=== PATIENT | female | born 1960 | race Caucasian/White ===

== ENCOUNTER 2023-05-07 12:27 | Day surgery (SDC) | payer MEDICARE, SELFPAY ==
[2023-05-07] VITALS (14 sets, daily range): BP systolic 84–122; BP diastolic 51–72; BMI 25.1
--- NOTE | 2023-05-07 16:11 | ITS.CL.CATH ---
[facility] - Catheterization
Cardiac Catheterization
Procedure Report:
CARDIAC CATHETERIZATION REPORT
Date of Procedure: 05/07/2023
Referring: Les Grant MD
Indication: Preop cath for mitral valve fibroelastoma
HEMODYNAMIC DATA
AO: 106/62
LV: Not done
LEFT VENTRICULOGRAPHY: Not done
CORONARY ANGIOGRAPHY
Dominance: Right
Left Main: Normal
LAD: Normal
Circumflex: Normal
RCA: Normal dominant vessel
Closure Device: None-the procedure was performed via the right radial artery. The Dejon's test was normal prior to the procedure.
Radiation (mGy): 45
DAP (cm2.Gy): 3.8
Fluoroscopy time: 1.6 minutes
CONCLUSIONS
1: Normal coronary arteries
Copy to: Les Grant MD, Juarez Beaver MD, PhD, Gina Nur MD
Jitednra Johnson MD, FACC, [facility]
[2023-05-07] MEDS: NSS 1000 IV ×2 (16:17→16:18)
== END 2023-05-07 18:56 | disposition home or self-care (01) ==
LOC: CATH 12:27
PROVIDERS: ATTENDING PHYSICIAN Internal Medicine Cardiovascular Disease; FAMILY PHYSICIAN Family Medicine; OTHER PHYSICIAN Internal Medicine
DX: Z01.810 Encounter for preprocedural cardiovascular examination (principal); I42.4 Endocardial fibroelastosis; E78.00 Pure hypercholesterolemia, unspecified; Z79.01 Long term (current) use of anticoagulants
CPT/HCPCS: 93454; C1894; Q9967

== ENCOUNTER → 2023-06-16 08:39 | Outpatient (REF) | payer MEDICARE, SELFPAY | LOC: WDC 08:39 | PROVIDERS: ATTENDING PHYSICIAN Family Medicine | DX: R92.2 Inconclusive mammogram (principal); Z85.3 Personal history of malignant neoplasm of breast | CPT/HCPCS: 76641 ==

== ENCOUNTER 2023-06-28 05:22 | Inpatient (IN) | payer MEDICARE, SELFPAY ==
[2023-06-18 09:20] VITALS: BMI 24.7
[2023-06-18 10:28] LABS: % Basophils 0.4 % (0-2); % Eosinophils 1.4 % (0-6); % Immature Granulocytes 0.4 % (0-0.5); % Lymphocytes 34.2 % (20.5-51.1); % Monocytes 10.6 % (1.7-9.3); Absolute Eosinophils 0.1 10^3/uL (0-0.7); Absolute Lymphocytes 1.7 10^3/uL (1.2-3.4); Absolute Monocytes 0.5 10^3/uL (0.1-0.6); Absolute Neutrophils 2.6 10^3/uL (1.4-6.5); Hemoglobin 12.5 g/dL (12.0-16.0); Mean Corp Hgb Conc. 33.8 g/dL (33.0-37.0); Mean Corpuscular Hgb 28.9 pg (27.0-31.0); Mean Corpuscular Volume 85.6 fL (81.0-99.0); Mean Platelet Volume 9.7 fL (7.4-10.4); Nucleated Red Blood Cells % 0 %; Platelet Count 229 10^3/uL (130-400); Red Blood Cell Count 4.32 10^6/uL (4.20-5.40); Red Cell Dist. Width 13.8 % (11.5-14.5); White Blood Cell Count 4.9 10^3/uL (4.8-10.8)
[2023-06-18 10:29] LABS: Urine Albumin Negative (Neg - Trace); Urine Bilirubin Negative (Negative); Urine Character Clear (Clear); Urine Color Yellow; Urine Glucose Negative (Negative); Urine Ketone Negative (Negative); Urine Leukocyte Negative (Negative); Urine Nitrite Negative (Negative); Urine Occult Blood Negative (Negative); Urine Urobilinogen Negative (Neg - 1+)
--- NOTE | 2023-06-18 10:40 | CM ---
CM met w/ patient during PATs for planned procedure, 06/27.
Patient informs that she resides alone in a private, 2 story home w/ 1 DEBI. She is functionally indep. w/ ADLs, mobility without the use of any assisted device.
Pt. still works full-time.
Reviewed pre and post op routines.
Soap, shower instructions and Cardiac Surgery booklet provided.
Discussed post op restrictions to include lifting and driving restrictions.
Reviewed post op appointments, Cardiac Rehab and visit from CT Transitional Care RN.
Plan for CT Surgery 06/27.
Anticipated DC plan is for home w/ CT Transitional Care RN.
CM to follow.
[2023-06-18 10:57] LABS: PT 14.1 Sec (11.4-14.6)
[2023-06-18 10:58] LABS: APTT 36.7 Sec (23.4-35.0)
[2023-06-18 11:33] LABS: ALT (SGPT) 35 U/L (0-35); AST (SGOT) 32 U/L (14-36); Albumin 4.5 g/dl (3.5-5.0); Alkaline Phosphatase 88 U/L (38-126); Blood Urea Nitrogen 19 mg/dl (7-17); Calcium 9.5 mg/dl (8.4-10.2); Carbon Dioxide 25 mmol/L (22-30); Chloride 107 mmol/L (98-107); Estimated Creatinine Clearance 55 ml/min; Glucose 88 mg/dl (70-99); Potassium 4.2 mmol/L (3.5-5.1); Sodium 137 mmol/L (135-145); Total Bilirubin 0.5 mg/dl (0.2-1.3); Total Protein 7.1 g/dl (6.3-8.2); eGFR > 60.00
[2023-06-18 12:14] LABS: Glycohemoglobin (HgbA1c) 5.9 % (4.0-5.6)
[2023-06-28] VITALS (15 sets, daily range): BP systolic 92–116; BP diastolic 49–78; BMI 24.6
[2023-06-28] MEDS: PROTONIX 40 MG PO (06:11)
[2023-06-28] MEDS: BACTROBAN 2% OINTMENT 1 APPLIC NASAL ×2 (06:11→19:20)
[2023-06-28] MEDS: MAGNESIUM OXIDE 500 MG PO (06:11)
[2023-06-28] MEDS: LOPRESSOR 25 MG PO (06:12)
--- NOTE | 2023-06-28 06:15 | PTCARENOTE ---
Patient arrived to room 2256 IVU with java security engineer and family. Patient A+A+Ox3. No neurological deficits noted. No c/o pain or discomfort. Steady gait. Patient confirmed taking 4% Chlorhexidine shower last night and this morning. Patient
confirmed NPO status after midnight. Patient clipped and prepped per protocol. CHG wipes. Admission questions and medication reconciliation completed. Pre-OP medications administered. I.S. 2000 ml. Heart pillow explained. Dr. Grant arrived and
talked with patient. call center support consultant for [facility].
--- NOTE | 2023-06-28 06:42 | W.CVOR.SURPR ---
[facility] Surgeon Immed Pre Op
-
I have examined this patient prior to performance of the scheduled procedure.
The patient's condition is unchanged from the time of the dictated/written History and
Physical and the patient is able to undergo the scheduled procedure.
Mitral valve intra-cardiac tumor resection, intimately involved with the subvalv apparatus, will make every attempt to spare her valve
She understands there is a higher than avg chance of requiring a replacement - if so, she has opted for a biological prosthesis
[2023-06-28 07:19] LABS: Urine Albumin Negative (Neg - Trace); Urine Bilirubin Negative (Negative); Urine Character Clear (Clear); Urine Color Yellow; Urine Glucose Negative (Negative); Urine Ketone Negative (Negative); Urine Leukocyte Negative (Negative); Urine Nitrite Negative (Negative); Urine Occult Blood Negative (Negative); Urine Urobilinogen Negative (Neg - 1+)
[2023-06-28] MEDS: ANCEF 10 IV ×2 (07:40→11:09)
[2023-06-28 07:44] LABS: ACT+ - POC 85 Seconds (82-134)
[2023-06-28 07:51] LABS: B.E. - POC -1.6 mmol/L; Glucose - POC 112 mg/dl (65-99); HCO3 - POC 23 mmol/L (21-29); Hematocrit - POC 32 % PCV (37-47); Hemodilution- POC No; Hemoglobin Calculated - POC 10.7; Ionized Calcium - POC 1.24 mmol/L (1.12-1.27); O2 Saturation %Calculated-POC 99.9 5 (92-96); PCO2 - POC 38 mmHg (35-45); PO2 - POC 309 mmHg (80-100); Potassium - POC 3.9 mmol/L (3.6-5.0); Sodium - POC 140 mmol/L (135-145); pH - POC 7.39 (7.35-7.45)
[2023-06-28 08:19] LABS: ACT+ - POC 478 Seconds (82-134)
--- NOTE | 2023-06-28 08:19 | CM ---
Reviewed chart. Mrs. King is in the operating room today. Prior to admission she resides alone in a two story home with one step to enter. Prior to admission she was independent with ambulation and adls. She has a prescription plan. Medical
work-up in progress. The discharge plan is to undetermined at this time.
[2023-06-28 08:47] LABS: Glucose - POC 130 mg/dl (65-99); HCO3 - POC 27 mmol/L (21-29); Hematocrit - POC 29 % PCV (37-47); Hemodilution- POC Yes; Hemoglobin Calculated - POC 9.8; Ionized Calcium - POC 0.98 mmol/L (1.12-1.27); O2 Saturation %Calculated-POC 99.9 5 (92-96); PCO2 - POC 44 mmHg (35-45); PO2 - POC 350 mmHg (80-100); Potassium - POC 4.8 mmol/L (3.6-5.0); Sodium - POC 137 mmol/L (135-145)
[2023-06-28 08:52] LABS: ACT+ - POC 552 Seconds (82-134)
--- NOTE | 2023-06-28 09:05 | W.PN.CD ---
Addendum entered and electronically signed by Ravinder Yanes MD 06/28/23 14:31:
I saw and examined the patient.
The IRB COMPLIANCE COORDINATOR's note was reviewed and I agree with the note.
s/p Radical mitral valve repair with tumor resection (detachment of the posterior leaflet, tumor resection, reattachment of the posterior leaflet, 26 mm band annuloplasty, free edge remodeling of the posterior leaflet, single pair of CV 4 [place]-Arnoldo
to A2)
- stable and in sinus rhythm
wean from vent as per protocol
- continue post op care as directed by CT surgery
Original Note:
Today's Communication / Plan
-
Follow telemetry
Impression / Plan
-
BACKGROUND: 63F with hyperlipidemia (in range of familial hypercholesterolemia), prior left breast cancer (lumpectomy and radiation 2008), and mitral valve mass found when TTE was ordered for dizziness. Dizziness resolved with Hallpike.
Site Planner: Dr. Beaver
Radical mitral valve repair with tumor resection via right common femoral & right mini thoracotomy on 06/28/[address] Grant
-Detachment of the posterior leaflet, tumor resection, reattachment of the posterior leaflet, 26 mm band annuloplasty
-She was on apixaban until 06/25/23 to reduce thromboembolic risk prior to surgical resection
-CLAUDIA unchanged (65%) without RWMA post op
-EKG with prolonged QT, follow
-Follow telemetry
HLD, resume rosuvastatin when able, likely escalate therapy outpatient to rosuvastatin 10mg daily to get LDL < 100
Prior breast cancer, left, S/P lumpectomy and radiation (2008)
SUBJECTIVE:
Intubated and sedated.
Physical Exam
Vital Signs/Labs
Vital Signs
Temp Pulse Resp BP Pulse Ox
97.6 F 71 16 115/78 97
06/28/23 05:43 06/28/23 06:12 06/28/23 05:43 06/28/23 06:12 06/28/23 05:43
06/27/23 06/28/23 06/29/23
06:59 06:59 06:59
Actual Weight 66.1 kg
06/18/23 09:01
06/18/23 09:01
PT 14.1 Sec (11.4-14.6) 06/18/23 09:01
INR 1.10 06/18/23 09:01
APTT 36.7 Sec (23.4-35.0) H 06/18/23 09:01
Physical Exam
Constitutional: No acute distress and Comfortable
EENT: Anicteric and Moist mucous membranes
Cardiovascular: Rhythm & rate is regular and Murmur/rub/gallop absent
Respiratory: Lungs clear to auscul.
GI: Soft, Distention absent and Flat
Neuro/Psych: Other (sedated)
Other: Skin (warm and dry)
Data Reviewed
-
Date of Service: June 28, 2023
[2023-06-28 09:17] LABS: B.E. - POC 0.6 mmol/L; Glucose - POC 183 mg/dl (65-99); HCO3 - POC 26 mmol/L (21-29); Hematocrit - POC 28 % PCV (37-47); Hemodilution- POC Yes; Hemoglobin Calculated - POC 9.4; Ionized Calcium - POC 1.09 mmol/L (1.12-1.27); O2 Saturation %Calculated-POC 99.9 5 (92-96); PCO2 - POC 41 mmHg (35-45); PO2 - POC 284 mmHg (80-100); Sodium - POC 138 mmol/L (135-145)
[2023-06-28 09:18] LABS: ACT+ - POC 478 Seconds (82-134)
[2023-06-28 09:52] LABS: Glucose - POC 128 mg/dl (65-99); HCO3 - POC 26 mmol/L (21-29); Hematocrit - POC 29 % PCV (37-47); Hemodilution- POC Yes; Ionized Calcium - POC 1.19 mmol/L (1.12-1.27); O2 Saturation %Calculated-POC 99.9 5 (92-96); PCO2 - POC 45 mmHg (35-45); PO2 - POC 270 mmHg (80-100); Potassium - POC 3.8 mmol/L (3.6-5.0); Sodium - POC 141 mmol/L (135-145); pH - POC 7.36 (7.35-7.45)
[2023-06-28 09:54] LABS: ACT+ - POC 517 Seconds (82-134)
[2023-06-28 10:43] LABS: B.E. - POC -2.9 mmol/L; Glucose - POC 89 mg/dl (65-99); HCO3 - POC 23 mmol/L (21-29); Hematocrit - POC 32 % PCV (37-47); Hemodilution- POC Yes; Hemoglobin Calculated - POC 10.7; Ionized Calcium - POC 1.08 mmol/L (1.12-1.27); O2 Saturation %Calculated-POC 99.5 5 (92-96); PCO2 - POC 41 mmHg (35-45); PO2 - POC 170 mmHg (80-100); Sodium - POC 143 mmol/L (135-145); pH - POC 7.35 (7.35-7.45)
[2023-06-28 10:44] LABS: ACT+ - POC 470 Seconds (82-134)
[2023-06-28 11:14] LABS: ACT+ - POC 90 Seconds (82-134)
[2023-06-28 11:15] LABS: B.E. - POC 0.8 mmol/L; Glucose - POC 79 mg/dl (65-99); HCO3 - POC 26 mmol/L (21-29); Hematocrit - POC 29 % PCV (37-47); Hemodilution- POC Yes; Hemoglobin Calculated - POC 9.7; Ionized Calcium - POC 1.38 mmol/L (1.12-1.27); O2 Saturation %Calculated-POC 99.9 5 (92-96); PCO2 - POC 41 mmHg (35-45); PO2 - POC 334 mmHg (80-100); Potassium - POC 3.6 mmol/L (3.6-5.0); Sodium - POC 146 mmol/L (135-145)
--- NOTE | 2023-06-28 11:46 | W.PN.CT.SURG ---
CT Surgery Operative Note
-
CARDIAC SURGERY OPERATIVE REPORT
Preoperative Diagnosis: Intracardiac tumor on the ventricular aspect of the posterior leaf of the mitral valve, mild mitral valve insufficiency
Postoperative Diagnosis: Same
Procedure(s) Performed:
1. Right mini thoracotomy with right common femoral artery and vein cannulation under CLAUDIA guidance
2. Radical mitral valve repair with tumor resection (detachment of the posterior leaflet, tumor resection, reattachment of the posterior leaflet, 26 mm band annuloplasty, free edge remodeling of the posterior leaflet, single pair of CV 4 [place]-Arnoldo to
A2)
3. Placement temporary ventricular pacing wires
4. Trans esophageal echocardiography
Date of Surgery: 06/28/2023
Comorbidities:
1. Intracardiac tumor, intimately adherent to the posterior leaflet of mitral valve
2. Mild mitral valve insufficiency
3. IBS
4. History of breast cancer
5. Mumps
6. Lyme's disease
7. Hyperlipidemia
Attending Surgeon: Les Grant MD, MS
Assistants: Mary Jane Rodriguez PA-C (present and necessary for retraction, suctioning, exposure, suture management, wound closure, etc. under my direction)
Anesthesiology: Gentry Patton MD and Devora Ventura CRNA
Scrub and Circulating RNs: Rachelle Haider RN, Kristen Grande RN
Life Assurance Representative: Chito Chaney CCP
Anesthesia: GETA
EBL: per perfusion records
Products: None
CPB Time: 153 minutes
Aortic Cross Clamp Time: 130 minutes
Indication(s) for Procedures: This is a 63-year-old female who was incidentally found to have an intracardiac tumor on the undersurface of her mitral valve. He was found to be on the ventricular aspect of the posterior leaflet of the mitral valve
intimately adherent to the chordal structures and subvalvular apparatus as well as the leaflet. The appearance of the mass on imaging studies was consistent with a myxoma. Given the risk of strokes at her age, she was counseled about moving
forward with mitral valve intervention. I plan to make every attempt at repairing her valve if possible.
Mitral Valve Description: Overall relatively normal-appearing mitral valve with some thickening along the rough zone of the anterior leaflet. The leaflets themselves are relatively translucent. There was a very large mass on the ventricular aspect
of the posterior leaf of the mitral valve causing it to bulge up into view. What was thought to be a flail segment at P1 was actually tumor flailing from the undersurface of the valve. There was mild mitral valve insufficiency at the beginning of
the case.
Implants:
1. 26mm WARD PhysioFlex Band, SN [id number]
2. CV4 x 1 to A2 to Posteromedial Papillary Muscle Head
3. Multiple 5-0 prolenes
Specimen:
1. Mass attached to chords
Findings: Left ventricular function was normal preoperatively with EF of 65%. Following surgery EF remained the same at 65% with no regional wall motion abnormalities tumor was densely adherent to the undersurface of the posterior leaf of the
mitral valve involving the subvalvular apparatus. The valve was repaired by detaching the posterior leaflet from P1 elevated towards P3 and elevating anteriorly. The mass and resected carefully using a 15 blade off the undersurface of the
posterior leaflet. Attachments of the cords and abnormal segments were transected with scissors. A 5 mm camera was used to inspect the ventricle and left atrial cavity to ensure there is no residual tumor. The posterior leaflet was then sewn back
on with 5-0 Prolene in a double layer fashion and secured with a micro core knot at the P3 site. A total of 9 nonpledgeted 2 Ethibond sutures were placed from trigone to trigone. The valve itself was not dilated abnormally and I initially placed a
30 mm annuloplasty band and found that there was poor leaflet coaptation so I then removed a 30 mm band and exchanged this for a 26 mm annuloplasty band. All annuloplasty sutures were core knotted. Free edge remodeling was performed at P1 P2 and
P2 P3 in order to reinforce the posterior coaptation margin and to promote a ventricular band of the leaflets. Due to the small size band, a single CV 4 [place]-Arnoldo was placed on the posttreatment a palpable muscle head to the A2 segment prevent
systolic anterior motion. After coming off cardiopulmonary bypass there was trace residual mitral valve insufficiency and a mean gradient of 2 mmHg across the valve with a cardiac index of 3. There is no residual tumor visualized on
transesophageal echocardiogram and there is good excursion of all leaflets of the mitral valve. No products were given.
Description of Procedure: The patient was brought to the operating room and placed supine in the table with their right side bumped up and right arm down. Arterial and central access was performed by anesthesiology. The patient was prepped from chin
to toes in the typical sterile fashion. Trans esophageal evaluation of cardiac function and all valvular structures was conducted. Before commencing, a time out was performed by all members of the team. All were in agreement with the procedure and
laterality and I proceeded. A small right groin incision was made to expose the common femoral artery and vein. A total of 35,000 units of heparin was given. A 5-6 cm right lateral thoracotomy was performed over the 5th intercostal space verified by
visualization of the hilum. The common femoral artery and vein were cannulated under transesophageal guidance using open Seldinger technique. The arterial line was verified to have an appropriate bounce and pressure correlating with testing. Once
the ACT was above 400, retrograde autologous priming was done and we commenced cardiopulmonary bypass. Target core temperature was 34�C.
Carbon dioxide was used to flood the field. The course of the phrenic nerve was identified to prevent injury. The pericardium was opened and two stay sutures were placed to facilitate a ``pericardial table.�� The oblique sinus was developed followed
by the inter atrial groove. An antegrade root vent was inserted and secured with a pursestring suture. The pump flow and mean arterial pressure were lowered and an aortic cross clamp was applied to the ascending aorta. A total of 1.2L initial dose
of Antegrade cardioplegia was delivered. We had rapid electro myocardial quiescence at 400cc of cardioplegia. The ventricle was monitored for distension by echocardiogram during this time. The left atrium was incised and enlarged. A left atrial lift
retractor was placed. The mitral valve was inspected. The tumor was resected and mitral valve was repaired as described above. The left atriotomy was closed with 3-0 prolene in a running fashion leaving a ventricular vent in place to de-air. After
filling the heart, the vent was removed and the prolene was secured with a corknot. Unipolar ventricular pacing wire was placed on the base of the right ventricle. The patient was placed into Trendelenburg position and pump flows were lowered. The
clamp was slowly removed with the root vent turned on. De-airing maneuvers were performed. We started to rewarm with a target of 36.5�C.
As the heart recovered, the mitral valve and ventricular function were assessed under transesophageal echocardiogram. The LV vent and root vents were removed. Once weaning parameters were satisfactory, cardiopulmonary bypass flow was lowered until
we were off cardiopulmonary bypass the mitral valve was inspected again. All surgical sites were inspected for hemostasis and appeared appropriate. The lines were clamped and the arterial was relocated to the venous cannula to give back volume. A
test dose of protamine was delivered and patient was monitored for any adverse reactions followed by complete protamine dosing. The femoral vessels were decannulated and repaired as indicated. The pericardium was approximated with 2-0 ethibond
sutures secured with corknots. One 19F Vega drain remained in the pleural space and one 24F vega drain in the pericardium. There was an excellent palpable distal to the RN ACUTE DIALYSIS cannulation site. Local analgesia was injected to the thoracotomy. The rib
space was approximated with #2 ethibond suture. The incision was closed in layers in a running fashion.
All instrument, sponge, and needle counts were confirmed to be correct x 2 at the end of the operation. The patient was transferred to the cardiac intensive care unit in critical but stable condition.
I, Dr. Les Grant, was present, scrubbed for, and performed all critical elements of this procedure.
Les Grant MD, MS
Cardiothoracic Surgeon
[facility]
This dictation was created using the [employer] dictation system. Please excuse any grammatical, typographical, or 'sound alike' errors
[2023-06-28 12:11] LABS: Glucose - Point of Care 150 mg/dl (70-99)
--- NOTE | 2023-06-28 12:18 | PTCARENOTE ---
Patient received from [facility]. Patient is unresponsive s/p anesthesia. RASS -4. Unable to assess orientation and muscle strength grading. Pupils 2mm sluggish bilaterally. NSR. Audible heart tones. HR 70s. V wire maintained, connected to pacer box but
not on. RN turned pacer box on and checked thresholds. Pacer box settings to backup: VVI. HR 40, mA 8, sensitivity 2. L radial a-line maintained with BP 100s-110s/50s-60s. RIJ cordis and swan maintained to 45cm. PA pressures 20s/10s. CVP 6-8. CO
4.67, CI 2.73, SVR 1233. Lines leveled/zeroed. Palpable pulses. No edema. Cordis and VIP KVOs adjusted. Levo gtt received at 1mcg/min. Precedex gtt received at 0.5mcgs/kg/hr. Nitro gtt received on standby. Insulin gtt received on standby. PIV
maintained. 8.0 ETT, 22 at the lip. Ventilator settings: SIMV. RR 12, TV 500, PEEP 5, FiO2 60%. Oxygen saturation 99%. Upon auscultation, bilateral anterior breath sounds are diminished. CTx2 maintained to -20cm wall suction with [address]
has small red drainage. RP CT has small red drainage. No air leaks or tidaling noted. Abdomen round. Hypoactive BS. NPO. Spring maintained with adequate clear, yellow UOP. Complete bedrest s/p [facility]. Assist x2 to turn/reposition. CTx2 sites are clean,
dry, intact. R lateral chest incision is approximated with surgical adhesive and open to air. R anterior small incisions/puncture sites are approximated with surgical adhesive and open to air. R groin incision is approximated with surgical adhesive
and open to air. Will continue to monitor.
[2023-06-28 12:20] LABS: B.E. 1.7 mmol/L; HCO3 27.7 mmol/L (21-28); Ionized Calcium 1.32 mMOL/L (1.15-1.33); O2 Saturation % 99.1 % (94-98); PCO2 49 mmHg (32-35); PO2 172 mmHg (83-108); Potassium 3.5 mMOL/L (3.5-5.1); Sodium 142 mMOL/L (136-145); pH 7.36 (7.35-7.45)
[2023-06-28 12:21] LABS: Hematocrit 30.6 % (37.0-47.0); Hemoglobin 10.3 g/dL (12.0-16.0); Platelet Count 184 10^3/uL (130-400)
--- NOTE | 2023-06-28 12:28 | CON.INTV ---
Consultation
Consultation Request
Date/Time Consultation Requested: 06/28/2023 - 11:22
Date/Time Consultation Performed: 06/28/2023 - 1156
Requesting Provider: Rachelle Hinton PA-C
Performing Provider: Pipe Westbrook MD
Reason for Consultation: s/p mitral valve repair
Medical History
-
Chief Complaint: Elective mitral valve repair
History of Present Illness:
63-year-old female former tobacco smoker (5-pack-year history, quit approximately 30 years ago) with a past medical history of left-sided breast cancer s/p XRT/lumpectomy, IBS�D, GERD, history of mumps, hyperlipidemia and history of recurrent kidney
infections who presents with elective mitral valve surgical repair. Patient known to Dr. Grant with last outpatient office visit on 04/28/2023. During that office visit it was discussed how patient has a mitral valve vegetation versus mass seen on
transthoracic echo done after patient was found to have a slow heart rate. She was admitted to the hospital in March 2023 where a CLAUDIA showed a 2 x 1.8 cm mass attached to the ventricular aspect of the posterior leaf of the mitral valve. Due to
how the mass is involved with the posterior leaflet and the subvalvular apparatus, mitral valve replacement is considered a high risk procedure. Surgical intervention was recommended and the risks versus benefits were discussed; the patient agreed
to have a mitral valve repair with mass resection. Today (06/28/2023), patient underwent right minithoracotomy with radical mitral valve repair with tumor resection. There were no immediate surgical complications and the patient was transferred to
the CVICU postoperatively with riveter hand/pulmonary services consulted for additional management/recommendations.
When I saw the patient she was in bed, intubated on ventilator via SIMV 12/500/60%/5, breathing at 12 breaths/min, VTe 490mL and PIP [id number]. she was saturating 99%, heart rate 78, BP via left radial A-line 123/75, and PAP via right�IJ PAC 26/17.
She has a right pleural chest tube and mediastinal chest tube x1. She is on insulin gtt at 3.5 units/h and sedated on Precedex at 0.3 mcg/kg/hr.
PMHx: History of left-sided breast cancer s/p radiation/lumpectomy, history of cervical polyps, IBS�D, GERD, history of Lyme disease (2019), L4-5 bulging disks, history of recurrent kidney infections, history of mumps, hyperlipidemia
PSHx: Lumpectomy (left � 2006), cervical polyp removal (2008), cystoscopy (1979)
Past Medical History
Past Medical History: Other (Above as per HPI)
Past Surgical History: Other (Above as per HPI)
Social History
Tobacco: Former Smoker (0.5 PPD X 10 years, quit in her early 30s)
Alcohol: Daily (Wine)
Drug: None
Family History
Family History: Cancer (Paternal grandmother - lymphoma; maternal grandmother - breast cancer), Diabetes (Father & maternal grandfather) and Other (Ulcerative colitis - daughter)
Allergies / Home Medications
Allergies
Allergy/AdvReac Type Severity Reaction Status Date / Time
codeine Allergy Nausea / Verified 06/16/23 10:12
Vomiting
Penicillins Allergy Unknown Verified 06/16/23 10:12
Home Medications
Medication Instructions Recorded Confirmed Last Taken Type
rosuvastatin 5 mg tablet 5 mg PO DAILY High Cholesterol 03/15/23 06/28/23 06/27/23 08:00 History
5 mg
famotidine 20 mg tablet (Pepcid) 20 mg PO DAILY Gastrointestinal 05/07/23 06/28/23 06/27/23 13:00 History
Issue 20 mg
pumpkin seed extract-soy germ 300 300 cap PO DAILY PRN INTERSTITIAL 05/07/23 06/28/23 06/27/23 08:00 History
mg capsule (Azo Bladder Control) CYSTITIS FLAIR 300 mg
apixaban 5 mg tablet (Eliquis) 5 mg PO BID Blood Clot 06/28/23 06/28/23 06/25/23 20:00 History
Prevention/Tx 5 mg
Review of Systems
-
Unable to Obtain full review of systems at this time due to: Patient Intubation
Vitals / Labs / Diagnostic Testing
Vital Signs
Temp Pulse Resp BP Pulse Ox
96.5 F L 72 12 94/61 96
06/28/23 13:00 06/28/23 13:00 06/28/23 13:00 06/28/23 13:00 06/28/23 13:00
Lab Data
06/28/23 12:11
Laboratory Results
06/28/23
12:11
PT 14.8 H
INR 1.18
APTT 28.5
pH 7.36
pCO2 49 H
pO2 172 H
HCO3 27.7
O2 Delivery Level
Diagnostic Testing:
Physical Exam
-
HEENT: Normocephalic and Anicteric
Cardiovascular: S1/S2 and Peripheral Edema (negative)
Respiratory: Other (Linear incision along right breast due to today's surgery; right pleural chest tube X1 & mediastinal chest tube X1, both attached to their own Pleur-evac) and Other (ETT in place; mechanical breath sounds heard bilaterally)
GI: Soft, Non Distended and Non Tender
Neurology: Other (Sedated)
Skin: Warm and Dry
General: Comfortable and Sweats (Negative)
Assessment
-
Assessment: 63-year-old female former tobacco smoker (5-pack-year history, quit approximately 30 years ago) with a PMHx of left-sided breast cancer s/p XRT/lumpectomy, IBS�D, GERD, history of mumps, hyperlipidemia and history of recurrent kidney
infections who p/w ellective mitral valve surgical repair. Patient known to Dr. Grant with last outpatient office visit on 04/28/2023. Patient has known lesion seen on echocardiography involving patient's mitral valve. Due to how of the mitral
valve mass was attached to her heart there was high risk related to a mitral valve replacement, hence mitral valve repair was recommended. On 06/28/2023, she underwent right minithoracotomy with radical mitral valve repair with tumor resection.
There were no immediate surgical complications and the patient was transferred to the CVICU postoperatively with riveter hand/pulmonary services consulted for additional management/recommendations.
Chronic medical conditions [employer]: History of left-sided breast cancer s/p radiation/lumpectomy, history of cervical polyps, IBS�D, GERD, history of Lyme disease (2019), L4-5 bulging disks, history of recurrent kidney infections, history of mumps,
hyperlipidemia
Impression:
#Mitral valve intra-cardiac mass s/p radical mitral valve repair with tumor resection - POD#0
#Ventilator-dependent respiratory failure
#Anemia (baseline Hb 12-12.5)
#Former tobacco use disorder with 5-pack-year history, quit approximately 30 years ago
Plan:
Ventilator settings reviewed
FiO2 will be weaned with goal SpO2>90-94%
Minute ventilation will be adjusted
Arterial blood gases will be monitored
Spontaneous breathing trial will be attempted with hopeful extubation after anesthesia/sedation wear off
Pulmonary artery catheter parameters will be followed
Pressors/antihypertensive/inotropes/diuretics will be provided as needed
Monitor chest tube output (R-pleural chest tube + mediastinal chest tube x1)
Monitor hemoglobin
Monitor platelet count and coags
Transfuse blood product if needed to keep Hb>7, plt>50k
CT surgery managing chest tubes
Replete K>4, Mg>2, PO4>3
Monitor blood sugar with goal BG 140-180mg/dL
Insulin drip per protocol
Aspiration precautions
VAP prevention protocol
DVT prophylaxis
Early nutrition
Early mobilization
Follow up pathology from today's case.
I personally reviewed the patient's vitals, labs, imaging, micro, current/former documentation and took this into account when formulating plan above. I reviewed this plan with the patient's CVICU nurse and discussed ventilatory management with the
respiratory therapist.
Critical care statement: A total of 43 minutes of critical care time was provided for this patient today. This includes management of ventilator, spontaneous breathing trial, arterial blood gases, pressors, of unstable vital signs, evaluation of the
patient at bedside, reviewing the patient's pertinent medical records including radiographs, microbiology, laboratory evaluations, and discussion with primary team and critical care nursing.
Data:
CXR 06-28-2023: Linear opacity within the right mid to lower lung zone, most suggestive of subsegmental atelectasis. Otherwise clear lungs.
[2023-06-28 12:31] LABS: Blood Urea Nitrogen 17 mg/dl (7-17); Estimated Creatinine Clearance 62 ml/min; Glucose 144 mg/dl (70-99); Magnesium 2.7 mg/dl (1.6-2.3)
[2023-06-28 12:36] LABS: APTT 28.5 Sec (23.4-35.0); INR 1.18; PT 14.8 Sec (11.4-14.6)
[2023-06-28] MEDS: NSS 500 IV (12:36)
[2023-06-28] MEDS: KCL 50 IV ×2 (12:36→13:35)
[2023-06-28 13:10] LABS: Glucose - Point of Care 144 mg/dl (70-99)
[2023-06-28] MEDS: TYLENOL PO (13:28)
--- NOTE | 2023-06-28 13:55 | PTCARENOTE ---
Patient is waking up. She is following commands and moving all extremities - squeezing hands, wiggling toes. She is nodding appropriately to answer questions. She keeps pointing to the ETT that she wants it out. Respiratory therapist placed patient
on CPAP at 1355. She is tolerating. RR 10-14 with TV 500cc-800cc. Oxygen saturation 96%. Will obtain an ABG in 30 minutes.
[2023-06-28 14:02] LABS: Glucose - Point of Care 94 mg/dl (70-99)
[2023-06-28 14:34] LABS: B.E. 0.8 mmol/L; HCO3 27.4 mmol/L (21-28); O2 Saturation % 99.3 % (94-98); PCO2 52 mmHg (32-35); PO2 159 mmHg (83-108); Potassium 4.6 mMOL/L (3.5-5.1); pH 7.33 (7.35-7.45)
--- NOTE | 2023-06-28 14:37 | PTCARENOTE ---
CPAP ABG results came back, but patient had to constantly be reminded to breathe. Her daughters were at bedside and she would just fall asleep. Per her daughters, she is sensitive to anesthesia and it usually takes her awhile to wake up. Patient
placed back on SIMV. Precedex gtt has been off since 1350. Waiting for patient to be more awake before extubating.
[2023-06-28 15:03] LABS: Glucose - Point of Care 109 mg/dl (70-99)
[2023-06-28] MEDS: PACERONE PO (15:24)
--- NOTE | 2023-06-28 15:28 | PTCARENOTE ---
Patient placed on CPAP at 1525 again - she is more awake this time. CHG wipe bath provided. New monitor leads provided. Gown applied. Turned/repositioned. Will obtain ABG in 30 minutes.
[2023-06-28 15:56] LABS: Glucose - Point of Care 82 mg/dl (70-99)
[2023-06-28 16:02] LABS: B.E. 0.1 mmol/L; HCO3 25.4 mmol/L (21-28); O2 Saturation % 99.5 % (94-98); PCO2 43 mmHg (32-35); PO2 179 mmHg (83-108); pH 7.38 (7.35-7.45)
[2023-06-28 16:03] LABS: Hematocrit 32.4 % (37.0-47.0); Hemoglobin 10.8 g/dL (12.0-16.0); Platelet Count 211 10^3/uL (130-400)
--- NOTE | 2023-06-28 16:15 | PTCARENOTE ---
ABG results are within extubate order parameters. Patient extubated by RN and respiratory therapist at 1610 to 6L NC. Patient tolerated. Oriented x4, voice is hoarse. Respiratory therapist went over IS, patient went up to 1000. Will continue to
monitor.
[2023-06-28 17:14] LABS: Glucose - Point of Care 176 mg/dl (70-99)
[2023-06-28] MEDS: LOW STRENGTH ASPIRIN 81 MG PO (17:14)
[2023-06-28] MEDS: CRESTOR 20 MG PO (17:14)
[2023-06-28] MEDS: ALBUMIN 5% 250 IV (17:14)
[2023-06-28] MEDS: OFIRMEV 100 IV (17:32)
--- NOTE | 2023-06-28 18:09 | PTCARENOTE ---
Prior to de-lining patient, CO 4.19, CI 2.45. PA pressure 28/19 and CVP 12 s/p 250cc albumin. De-lined per Dr. Grant. CV PA placed orders. Patient tolerated. New dressings applied.
[2023-06-28 19:09] LABS: Glucose - Point of Care 126 mg/dl (70-99)
[2023-06-28] MEDS: SENOKOT-S PO ×2 (19:17→20:18)
[2023-06-28] MEDS: ANCEF 5 IV (19:17)
[2023-06-28] MEDS: FLEXERIL 5 MG PO ×2 (19:17→22:04)
[2023-06-28] MEDS: LIDOCAINE 4% PATCH 1 PATCH TOPICAL (19:36)
[2023-06-28] MEDS: DILAUDID 0.5 MG IV (19:57)
--- NOTE | 2023-06-28 20:20 | PTCARENOTE ---
Assumed care of patient at 1900. Patient found resting in bed at time of assessment. Patient is AAOx4, follows commands appropriately, moves all extremities. Lung sounds are diminished at the bases, saO2 at 99% on 3L NC. Patient has CTx2: 1xmed to
one atrium and R pleural to one atrium with red sanguineous drainage. Heart sounds have a regular rate and rhythm, patient is NSR on the monitor, patient has normal palpable pulses and no edema is noted. Patient does have temporary V wires with VVI
settings at 40/8/2. Patient has soft nontender abdomen with active BS. There is a norwood in place draining clear yellow urine. Patient has R lateral chest incision approx with surg adhesive CERAMIC PAINTER, 4xsmaller incisions throughout the left flank approx
with surg adhesive LILIYA, there is a 4x4 gauze with tegaderm dressing over CT wounds that is CDI. Patient has R groin puncture approx with surg adhesive LILIYA. Patient has R IJ cordis receiving KVO and R wrist 20 G receiving insulin gtt. Patient c/o
severe R shoulder pain warm compress applied and attempted repoisition. See MAR for medications. Vital signs as follows: T-99.4 P-65 RR-16 BP- 101/65 MAP-77.
[2023-06-28 21:18] LABS: Glucose - Point of Care 94 mg/dl (70-99)
[2023-06-28] MEDS: NEURONTIN 200 MG PO (22:03)
[2023-06-28] MEDS: TYLENOL 1000 MG PO (22:03)
[2023-06-28] MEDS: PACERONE 200 MG PO (22:04)
[2023-06-28 23:09] LABS: Glucose - Point of Care 118 mg/dl (70-99)
[2023-06-29] VITALS (19 sets, daily range): BP systolic 91–124; BP diastolic 56–74; PULSE 85; O2SAT 93–94; BMI 25.3
--- NOTE | 2023-06-29 00:30 | PTCARENOTE ---
Patient reassessed. VSS. Pain well managed at this time patient is sleeping. Remains SR on the court monitor. Slowly weaning O2. Patient is stable.
[2023-06-29 01:05] LABS: Glucose - Point of Care 103 mg/dl (70-99)
[2023-06-29] MEDS: DILAUDID 0.25 MG IV (02:04)
[2023-06-29 03:08] LABS: Glucose - Point of Care 104 mg/dl (70-99)
--- NOTE | 2023-06-29 03:35 | W.PN.CT ---
Today's Communication / Plan
-
Plan:
-No major issues overnight. Hemodynamically and neurologically intact
-Successfully extubated @ 1610 on 06/28/23
-Off all drips but insulin per protocol
-[place] and a-line d/c'd yesterday 06/28/23 @ ~1800
-Monitor chest tube output: R pl 65/105, med 35/65
-Cont. current meds (ASA, Amiodarone, Lopressor, Crestor)
-Transition off insulin gtt/Tele phase today
-Encourage use of IS
-Wean off of O2 as tolerated
-Maintain cordis
-Maintain temporary pacer (will cut prior to d/c home)
-OOB into chair/Ambulate
-F/U pathology
Assessment / Plan
-
Assessment:
-S/P Right mini thoracotomy with right common femoral artery and vein cannulation under CLAUDIA guidance/ Radical mitral valve repair with tumor resection (detachment of the posterior leaflet, tumor resection, reattachment of the posterior leaflet, 26
mm band annuloplasty, free edge remodeling of the posterior leaflet, single pair of CV 4 [place]-Arnoldo to A2), by Dr. Grant, 06/28/23, pod#1
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
-Mild mitral valve insufficiency
-Mild TR
-LVEF 60% per intraop CLAUDIA
-Hyperlipidemia
-Prediabetes (A1c 5.9)
-History of breast cancer s/p lumpectomy and XRT (2008)
-GERD
-IBS
-Interstitial cystitis
-Hx Lyme's disease
-Hx Mumps
-Lumber disc herniation/L4-5
-S/p cystoscopy
-S/P cervical polypectomy
-Acute postop blood loss/Anemia (stable without blood transfusion)
-Acute postop atelectasis
-Acute postop hypotension with subsequent hypervolemia
Discussed patient care with: Cardiology, Nursing, Respiratory Therapy, Pharmacy and Care Team
Subjective
Procedure
-S/P Right mini thoracotomy with right common femoral artery and vein cannulation under CLAUDIA guidance/ Radical mitral valve repair with tumor resection (detachment of the posterior leaflet, tumor resection, reattachment of the posterior leaflet, 26
mm band annuloplasty, free edge remodeling of the posterior leaflet, single pair of CV 4 [place]-Arnoldo to A2), by Dr. Grant, 06/28/23, pod#1
-
Date of Service: June 29, 2023
Pt c/o right shoulder and pleuritic chest pain, states right shoulder pain better this morning
Objective Data
-
PT 14.8 Sec (11.4-14.6) H 06/28/23 12:11
INR 1.18 06/28/23 12:11
APTT 28.5 Sec (23.4-35.0) 06/28/23 12:11
Vital Signs
Vital Signs
Temp Pulse Resp BP Pulse Ox
99.5 F 70 16 91/62 99
06/29/23 02:00 06/29/23 02:00 06/29/23 02:00 06/29/23 02:00 06/29/23 02:00
CT Intake/Output/Weight
06/28/23 06/28/23 06/29/23
06:59 18:59 06:59
Intake Total 669.6 / 776.0 106.4 / 776.0
Output Total 495 / 910 415 / 910
Balance 174.6 / -134.0 -308.6 / -134.0
SaO2: 99 (1L )
Physical Exam
-
General: Awake, Oriented and AOx3
Cardiovascular: Regular rate & rhythm, No Murmurs, No Rub and No Gallop
Respiratory: Decreased Breath Sounds (at bases, otherwise clear)
Sternum: Stable
Incision: Clean, Dry, Intact and Dressing Intact
Extremities: No Edema
Data Reviewed
-
Lab Results: Results Reviewed
Medications: Active Meds Reviewed
Chest X-Ray: Report Reviewed and Image Reviewed
ECG: Report Reviewed and Image Reviewed
[2023-06-29 03:41] LABS: Hemoglobin 10.1 g/dL (12.0-16.0); Mean Corp Hgb Conc. 32.6 g/dL (33.0-37.0); Mean Corpuscular Hgb 28.9 pg (27.0-31.0); Mean Corpuscular Volume 88.8 fL (81.0-99.0); Mean Platelet Volume 10.2 fL (7.4-10.4); Platelet Count 149 10^3/uL (130-400); Red Blood Cell Count 3.49 10^6/uL (4.20-5.40); Red Cell Dist. Width 14.3 % (11.5-14.5); White Blood Cell Count 11.2 10^3/uL (4.8-10.8)
--- NOTE | 2023-06-29 04:14 | PTCARENOTE ---
Patient reassessed. VSS. Patient remains in NSR on the monitor. AM labs obtained. Patient pain well controlled at this time. AM hygiene care provided.
[2023-06-29] MEDS: FLEXERIL 5 MG PO (04:21)
[2023-06-29 04:24] LABS: Blood Urea Nitrogen 17 mg/dl (7-17); Calcium 9.5 mg/dl (8.4-10.2); Carbon Dioxide 26 mmol/L (22-30); Chloride 105 mmol/L (98-107); Estimated Creatinine Clearance 62 ml/min; Glucose 104 mg/dl (70-99); Magnesium 2.3 mg/dl (1.6-2.3); Potassium 4.4 mmol/L (3.5-5.1); Sodium 139 mmol/L (135-145); eGFR > 60.00
[2023-06-29] MEDS: TORADOL 15 MG IV ×3 (04:48→21:01)
[2023-06-29] MEDS: ANCEF 5 IV ×2 (04:48→12:30)
[2023-06-29 04:58] LABS: Glucose - Point of Care 115 mg/dl (70-99)
--- NOTE | 2023-06-29 06:55 | W.PN.ANS.POP ---
Anesthesia Post Operative
- Anesthesia Post Op Note
Vital Signs Stable-See Nursing Note: Yes
Airway Patent: Yes
Adequate Pain Control: Yes
Change in Mental Status: No
Current Postoperative Nausea & Vomiting: No
Anesthesia Complications: No
General Anesthetic Recall: No
Unplanned Admission: No
Post Op Hydration Adequate: Yes
--- NOTE | 2023-06-29 07:00 | PTCARENOTE ---
Bedside walking rounds report received: patient seen on rounds resting in chair oob on room air. Sllightly groggy but appropriate neurologically. Oriented x 3. NSR on monitor with pac's. Insulin protocol. Right pleural chest tube to -20cm wall
suction and will be dc later this morning. Mediastinal chest tubes x 1 to -20cm wall suction: to remain for today: no 'dumping'. Temp epicardial v wire to medtronic box and on: see flowrecord for settinngs and remaining assessments.
[2023-06-29] MEDS: TYLENOL 1000 MG PO ×3 (07:10→21:00)
[2023-06-29 07:15] LABS: Glucose - Point of Care 97 mg/dl (70-99)
[2023-06-29] MEDS: BACTROBAN 2% OINTMENT 1 APPLIC NASAL ×2 (08:36→21:03)
[2023-06-29] MEDS: LIDOCAINE 4% PATCH 1 PATCH TOPICAL (08:36)
[2023-06-29] MEDS: LOPRESSOR 12.5 MG PO ×2 (08:37→21:00)
[2023-06-29] MEDS: NEURONTIN 200 MG PO ×3 (08:37→21:01)
[2023-06-29] MEDS: PACERONE 200 MG PO ×3 (08:37→20:59)
[2023-06-29] MEDS: MAGNESIUM OXIDE 500 MG PO ×2 (08:38→21:00)
[2023-06-29] MEDS: SENOKOT-S PO (08:39)
[2023-06-29] MEDS: ROXICODONE 5 MG PO (08:40)
[2023-06-29] MEDS: LOW STRENGTH ASPIRIN 81 MG PO (08:41)
[2023-06-29] MEDS: PROTONIX 40 MG PO (08:41)
--- NOTE | 2023-06-29 08:56 | W.PN.INTV ---
Today's Communication / Plan
Recommendations
Up OOB as tolerated
Encourage incentive spirometer 10x per hour for at least 4 hours/day
Maintain SpO2 >90-94%
PT/OT
Pain control
Wean off insulin drip with goal BG 140�180
Real Estate Firm Manager/pulmonary service will follow along while patient remains CVICU status. Once she has been downgraded then we will sign off.
Assessment
-
Assessment: 63-year-old female former tobacco smoker (5-pack-year history, quit approximately 30 years ago) with a PMHx of left-sided breast cancer s/p XRT/lumpectomy, IBS�D, GERD, history of mumps, hyperlipidemia and history of recurrent kidney
infections who p/w ellective mitral valve surgical repair. Patient known to Dr. Grant with last outpatient office visit on 04/28/2023. Patient has known lesion seen on echocardiography involving patient's mitral valve. Due to how of the mitral
valve mass was attached to her heart there was high risk related to a mitral valve replacement, hence mitral valve repair was recommended. On 06/28/2023, she underwent right minithoracotomy with radical mitral valve repair with tumor resection.
There were no immediate surgical complications and the patient was transferred to the CVICU postoperatively with channel cementer/pulmonary services consulted for additional management/recommendations.
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
hyperlipidemia
Impression:
#Mitral valve intra-cardiac mass s/p radical mitral valve repair with tumor resection - POD#1
#Leukocytosis - likely reactive in setting of above
#Anemia (baseline Hb 12-12.5)
#Former tobacco use disorder with 5-pack-year history, quit approximately 30 years ago
Plan:
Patient successfully extubated and is now on room air breathing comfortably
Maintain SpO2 >90-94%
Encourage incentive spirometer
Up OOB as tolerated
PT/OT
Pulmonary artery catheter already removed
Right pleural chest tube removed today
Monitor chest tube output (mediastinal chest tube x1)
Monitor hemoglobin
Monitor platelet count and coags
Transfuse blood product if needed to keep Hb>7, plt>50k
CT surgery managing chest tube
Replete K>4, Mg>2, PO4>3
Monitor blood sugar with goal BG 140-180mg/dL
Insulin drip per protocol
Aspiration precautions
DVT prophylaxis
Early nutrition
Early mobilization
Follow up pathology from OR
Continue CVICU level care while patient remains on insulin drip. Once she is off the drip then channel cementer/pulmonary service will sign off.
I personally reviewed the patient's vitals, labs, imaging, micro, current/former documentation and took this into account when formulating plan above. I reviewed this plan with the patient's CVICU nurse and discussed ventilatory management with the
respiratory therapist.
Critical care statement: A total of 40 minutes of critical care time was provided for this patient today. This includes management of ventilator, spontaneous breathing trial, arterial blood gases, pressors, of unstable vital signs, evaluation of the
patient at bedside, reviewing the patient's pertinent medical records including radiographs, microbiology, laboratory evaluations, and discussion with primary team and critical care nursing.
Data:
CXR 06-28-2023: Linear opacity within the right mid to lower lung zone, most suggestive of subsegmental atelectasis. Otherwise clear lungs.
CXR 06-29-2023: Interval removal of central pulmonary artery catheter and endotracheal tube; No pneumothorax.
Subjective Dataa
Subjective Data
Date of Service:
Date of Service: June 29, 2023
Chief Complaint: Real Estate Firm Manager Follow Up
Subjective:
Patient seen and evaluated this morning. Laying in bed in no acute distress. Right IJ cordis in place. Breathing on room air comfortably. BP 99/66. Member at bedside and I answered all her questions. Patient feels sleepy but she is easily
arousable and communicate with me normally. She remains on insulin drip at 0.2 units/hr.
Review of Systems
General: Other (Negative unless mentioned above)
Objective Data
Data Reviewed
Vital Signs / I&O / Oxygen:
Vital Signs
Temp Pulse Resp BP Pulse Ox
100.1 F 79 16 113/61 96
06/29/23 08:00 06/29/23 08:15 06/29/23 08:00 06/29/23 08:00 06/29/23 08:15
Intake and Output
06/28/23 06/29/23 06/30/23
06:59 06:59 06:59
Intake Total 811.9 / 862.5 171.2 / 171.2
Output Total 1005 / 1030 65 / 65
Balance -193.1 / -167.5 106.2 / 106.2
SaO2 [CPAP/PSV] 99
SaO2 [SIMV] 99
SaO2 96
Nasal Cannula flow liters per 1
minute
Physical Exam
General: Comfortable
HEENT: Normocephalic, Anicteric and Other (R-IJ cordis in place)
Cardiovascular: S1-S2 and Peripheral Edema (negative)
Respiratory: Clear, Wheeze (negative), Crackles (negative), Non-Labored Respirations and Chest Tube (mediastinal chest tube x1)
GI: Soft, Non Distended, Non Tender and Normal Bowel Sounds
Neurology: AO x 3
Skin: Warm, Dry and Other (sutures seen on right chest wall adjacent to breast)
Labs/Micro/Reports
Lab Data
06/29/23 03:12
06/29/23 03:12
Laboratory Results
06/28/23 06/28/23 06/28/23
12:11 14:24 15:53
PT 14.8 H
INR 1.18
APTT 28.5
pH 7.36 7.33 L 7.38
pCO2 49 H 52 H 43 H
pO2 172 H 159 H 179 H
HCO3 27.7 27.4 25.4
O2 Delivery Level
[2023-06-29 08:58] LABS: Glucose - Point of Care 116 mg/dl (70-99)
--- NOTE | 2023-06-29 09:42 | W.PN.CD ---
Today's Communication / Plan
-
Predischarge echo to evaluate murmur
To be determined is duration of OAT (no AFib)
Impression / Plan
-
Background: 63F with hyperlipidemia (in range of familial hypercholesterolemia), prior left breast cancer (lumpectomy and radiation 2008), and mitral valve mass found when TTE was ordered for dizziness. Dizziness resolved with Hallpike.
Express Manager: Dr. Beaver
S/p Radical mitral valve repair with tumor resection via right common femoral & right mini thoracotomy on 06/28/[address] Grant
- Doing well
- Intraop CLAUDIA => postop: tr MR, mean gradient 2 mmHg
- Duration of OAT to be determined (no AFib)
- EKG 06/29/2023 is NSR with NASTT mild
- Systolic murmur on exam => reasonable to check predischarge echo and perhaps echo at 3 months post-op
HLD statin, goal LDL less than 100
Prior breast cancer, left, S/P lumpectomy and radiation (2008)
Subjective:
Feels well sitting in chair, anticipated discomfort well controlled
Physical Exam
Vital Signs/Labs
Vital Signs
Temp Pulse Resp BP Pulse Ox
100.1 F 82 16 111/65 96
06/29/23 08:00 06/29/23 09:00 06/29/23 08:00 06/29/23 09:00 06/29/23 08:45
06/28/23 06/29/23 06/30/23
06:59 06:59 06:59
Actual Weight 66.1 kg 67.9 kg
06/29/23 03:12
06/29/23 03:12
PT 14.8 Sec (11.4-14.6) H 06/28/23 12:11
INR 1.18 06/28/23 12:11
APTT 28.5 Sec (23.4-35.0) 06/28/23 12:11
Magnesium 2.3 mg/dl (1.6-2.3) 06/29/23 03:12
Physical Exam
Constitutional: No acute distress
EENT: Anicteric
Cardiovascular: Rhythm & rate is regular and Systolic murmur present (2-3/6 HSM at apex)
Respiratory: Respiratory effort normal and Lungs clear to auscul.
GI: Soft and Distention absent
Neuro/Psych: AO x 3
Data Reviewed
-
Date of Service: June 29, 2023
--- NOTE | 2023-06-29 10:45 | PTCARENOTE ---
Patient assisted back to bed. Right lat pleural chest tube sutures and chest tube dc by Gisella Lopes PA-c with RN assist. Mediastinal chest tube x 1 to remain and redressed. Spring cath dc. See flowrecord for remaining assessments.
[2023-06-29 10:59] LABS: Glucose - Point of Care 82 mg/dl (70-99)
[2023-06-29 12:14] LABS: Glucose - Point of Care 108 mg/dl (70-99)
--- NOTE | 2023-06-29 12:15 | PTCARENOTE ---
Assisted back OOB to chair for lunch. Insulin gtt dc. Room air. NSR
[2023-06-29] MEDS: NSS 500 IV (12:46)
--- NOTE | 2023-06-29 13:38 | PTCARENOTE ---
Assisted patient back to bed. Mediastinal chest tube suture/mediastinal chest tube dc by Mary Jane Rodriguez with assist of RN. Patient to get 2 D echocardiogram after mediastinal chest tube removed. Patient tolerated procedure well.
--- NOTE | 2023-06-29 14:39 | PTCARENOTE ---
Patient received from previous RN resting in bed, AAO X 3, family at bedside. Echo in process. NSR via cm. RIJ Cordis w/kvo infusing. Epicardial V-wire to pulse generator set to back up rate 40bpm, no spikes noted. All procedural sites stable.
Patient c/o R shoulder pain , Kpad applied. Patient updated to plan of care for the afternoon, in agreement. See work list for full assessment and interventions performed.
--- NOTE | 2023-06-29 16:37 | PTCARENOTE ---
VS obtained, assessment stable. Pacing wire insulated as ordered. Patient denies urge to void, bladder scan performed. Patient assisted to ambulate villagomez approximately 200 feet, settled into chair to order dinner. Patient tolerated well.
[2023-06-29] MEDS: CRESTOR 20 MG PO (18:20)
--- NOTE | 2023-06-29 20:00 | PTCARENOTE ---
assumed care of patient @ 1900. received pt sitting in chair, AOX3. VSS on RA. NSR on monitor, V wire insulated. +pulses - edema. Lungs clear, diminished on room air. occasional productive cough with gastelum sputum present. + flatus, belly soft,
nontender. Poor appetite. Voided 250 mls arthur urine in hat . R lateral incisions with glue, CT dressing CDI. R IJ cordis and R wrist both patent. Pt took long walk in hallway with daughters and then to bed. now resting comfortably with call reilly
within reach.
[2023-06-29] MEDS: SENOKOT-S 1 TABLET PO (21:00)
[2023-06-30] VITALS (16 sets, daily range): BP systolic 83–110; BP diastolic 50–66; PULSE 67; O2SAT 95–96; BMI 26.0
--- NOTE | 2023-06-30 | PTCARENOTE ---
pt resting comfortably, no change in assessment
[2023-06-30] MEDS: ALBUMIN 5% 250 IV (00:47)
--- NOTE | 2023-06-30 00:55 | PTCARENOTE ---
BP soft, 250 mls albumin ordered and given
--- NOTE | 2023-06-30 04:00 | PTCARENOTE ---
pt resting comfortably no change in assessment, labs drawn and sent, BP improved
--- NOTE | 2023-06-30 04:44 | DOWNTIME ---
There was a [employer] Client Heat Treater Helper Downtime on 06/30/2023 from 0100 to 06/30/2023 at 0322. Downtime documentation of patient's care, including medication administrations, has been reconciled in the electronic record per guidelines. Refer to the
patient's paper chart under the miscellaneous tab to see printed paper medication records and downtime forms.
[2023-06-30 04:52] LABS: Hematocrit 29.8 % (37.0-47.0); Hemoglobin 9.7 g/dL (12.0-16.0); Mean Corp Hgb Conc. 32.6 g/dL (33.0-37.0); Mean Corpuscular Hgb 28.9 pg (27.0-31.0); Mean Corpuscular Volume 88.7 fL (81.0-99.0); Mean Platelet Volume 10.3 fL (7.4-10.4); Platelet Count 169 10^3/uL (130-400); Red Blood Cell Count 3.36 10^6/uL (4.20-5.40); Red Cell Dist. Width 14.6 % (11.5-14.5); White Blood Cell Count 12.6 10^3/uL (4.8-10.8)
--- NOTE | 2023-06-30 04:55 | W.PN.CT ---
Today's Communication / Plan
-
-pod #2
-doing well, no significant issues, wants to go home, ambulates
-low UO with hypotension 80s-90s overnight (sleeping, asymptomatic)- improved with 1 Albumin
-held am BB to avoid hypotension - monitor
-follow Cr - 1.1 today (0.9 preop)
-s/p Echo 06/28: trace MR, mild TR, nl EF 60-65%
-pain controlled with Toradol, Tylenol, Gabapentin, Flexeril, Lidocaine patch
-labs pending
-encourage IS (1500 so far), OOB, ambulate
Assessment / Plan
-
Assessment:
-S/P Right mini thoracotomy with right common femoral artery and vein cannulation under CLAUDIA guidance/ Radical mitral valve repair with tumor resection (detachment of the posterior leaflet, tumor resection, reattachment of the posterior leaflet, 26
mm band annuloplasty, free edge remodeling of the posterior leaflet, single pair of CV 4 [place]-Arnoldo to A2), by Dr. Grant, 06/28/23, pod#2
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
-Mild mitral valve insufficiency
-Mild TR
-LVEF 60% per intraop CLAUDIA
-Hyperlipidemia
-Prediabetes (A1c 5.9)
-History of breast cancer s/p lumpectomy and XRT (2008)
-GERD
-IBS
-Interstitial cystitis
-Hx Lyme's disease
-Hx Mumps
-Lumber disc herniation/L4-5
-S/p cystoscopy
-S/P cervical polypectomy
-Acute postop blood loss/Anemia (stable without blood transfusion)
-Acute postop atelectasis
-Acute postop hypovolemia with subsequent hypervolemia
-Acute postop hyponatremia
Echo 06/29/23:
Normal left ventricular size, wall thickness and systolic function.
LV ejection fraction is 60-65%.
Mitral valve s/P repair with trace MR
Mild tricuspid regurgitation.
Compared to the previous echo 06/28/23 MV repair has been performed .
Previously noted mass associated with the mitral valve is no longer present.
Discussed patient care with: Nursing and Care Team
Subjective
Procedure
-S/P Right mini thoracotomy with right common femoral artery and vein cannulation under CLAUDIA guidance/ Radical mitral valve repair with tumor resection (detachment of the posterior leaflet, tumor resection, reattachment of the posterior leaflet, 26
mm band annuloplasty, free edge remodeling of the posterior leaflet, single pair of CV 4 [place]-Arnoldo to A2), by Dr. Grant, 06/28/23, pod#1
-
Date of Service: June 30, 2023
Objective Data
-
PT 14.8 Sec (11.4-14.6) H 06/28/23 12:11
INR 1.18 06/28/23 12:11
APTT 28.5 Sec (23.4-35.0) 06/28/23 12:11
Vital Signs
Vital Signs
Temp Pulse Resp BP Pulse Ox
98.6 F 66 18 97/54 98
06/29/23 20:00 06/30/23 03:45 06/29/23 20:00 06/30/23 03:00 06/29/23 20:00
CT Intake/Output/Weight
06/29/23 06/29/23 06/30/23
06:59 18:59 06:59
Intake Total 142.3 / 862.5 684.5 / 1184.5 500 / 1184.5
Output Total 510 / 1030 275 / 525 250 / 525
Balance -367.7 / -167.5 409.5 / 659.5 250 / 659.5
SaO2: 98
Physical Exam
-
General: Awake
Cardiovascular: Regular rate & rhythm, No Murmurs and No Rub
Respiratory: Decreased Breath Sounds (on R)
Incision: Clean, Dry and Intact
Extremities: No Edema (2+ DP b/l)
Data Reviewed
-
Lab Results: Results Reviewed
Medications: Active Meds Reviewed
Chest X-Ray: Report Reviewed and Image Reviewed
ECG: Report Reviewed and Image Reviewed
[2023-06-30 05:36] LABS: Blood Urea Nitrogen 28 mg/dl (7-17); Calcium 9.4 mg/dl (8.4-10.2); Carbon Dioxide 27 mmol/L (22-30); Chloride 100 mmol/L (98-107); Estimated Creatinine Clearance 45 ml/min; Glucose 131 mg/dl (70-99); Magnesium 2.5 mg/dl (1.6-2.3); Potassium 5.1 mmol/L (3.5-5.1); Sodium 131 mmol/L (135-145); eGFR 55.76
[2023-06-30] MEDS: TYLENOL 1000 MG PO ×2 (07:02→14:02)
[2023-06-30] MEDS: FERRLECIT 110 MG IV (08:31)
[2023-06-30] MEDS: LOW STRENGTH ASPIRIN 81 MG PO (08:31)
[2023-06-30] MEDS: BACTROBAN 2% OINTMENT 1 APPLIC NASAL (08:31)
[2023-06-30] MEDS: VITAMIN C 1000 MG PO (08:31)
[2023-06-30] MEDS: SENOKOT-S PO ×2 (08:31→08:38)
[2023-06-30] MEDS: PROTONIX 40 MG PO (08:32)
[2023-06-30] MEDS: MAGNESIUM OXIDE 500 MG PO (08:32)
[2023-06-30] MEDS: TOPROL XL 12.5 MG PO (08:32)
[2023-06-30] MEDS: PACERONE 200 MG PO (08:32)
[2023-06-30] MEDS: NEURONTIN 200 MG PO (08:32)
[2023-06-30] MEDS: LIDOCAINE 4% PATCH TOPICAL ×2 (08:33→08:38)
--- NOTE | 2023-06-30 08:40 | PTCARENOTE ---
Patient received from welder 2nd shift resting oob in chair, sleepy but arousable and appropriate, states pain controlled at this time. NSR via cm, SaO2 100% on RA. RIJ Cordis w/kvo infusing. Epicardial V-wire, insulated to chest wall. All procedural
sites stable. Dr. Grant and team to bedside for am rounds, patient updated to plan of care for the day, in agreement. See work list for full assessment and interventions performed.
--- NOTE | 2023-06-30 08:53 | CM ---
Reviewed chart. Met with Mrs. King to review discharge plans. She states she is feeling well and maybe able to go hoe soon. She states prior to admission she resides alone in a two story hoe without any steps to enter. She states she has to go
up a full flight of steps to get to bedroom/full bathroom. She states she has a powder room on the first floor. She states prior to admission she was independent with ambulation and adls. She states she burk not have any DME in the home. She states
she has friends and family lined up to stay with her for the next two weeks to assist un her care if needed. We reviewed a home visit by the Cardiothoracic Transitional Care Nurse. She is agreeable to a home visit. Medical work-up in progress.
The discharge plan is to return home with friends and family staying with her for two weeks, and a hoe visit by the Cardiothoracic Transitional Care Nurse when medically stable.
--- NOTE | 2023-06-30 09:12 | W.PN.CD ---
Today's Communication / Plan
-
cont statin
to discuss ASA vs eliquis with CT surgery
trend tele
Impression / Plan
-
Background: 63F with hyperlipidemia (in range of familial hypercholesterolemia), prior left breast cancer (lumpectomy and radiation 2008), and mitral valve mass found when TTE was ordered for dizziness. Dizziness resolved with Hallpike.
Youth Counselor: Dr. Beaver
S/p Radical mitral valve repair with tumor resection via right common femoral & right mini thoracotomy on 06/28/[address] Grant
- Doing well
- Intraop CLAUDIA => postop: tr MR, mean gradient 2 mmHg
- post op TTE 06/28: EF 60-65%, MV repair with mean gradient 3 and trace MR
- Duration of OAT to be determined (no AFib)
- EKG and tele: sinus
HLD, FH: continue rosuvastatin
Prior breast cancer, left, S/P lumpectomy and radiation (2008)
Subjective:
Sitting in chair. No cardiac complaints.
Physical Exam
Vital Signs/Labs
Vital Signs
Temp Pulse Resp BP Pulse Ox
98.6 F 69 16 101/64 100
06/30/23 08:11 06/30/23 09:00 06/30/23 08:11 06/30/23 08:32 06/30/23 08:11
06/29/23 06/30/23 07/01/23
06:59 06:59 06:59
Actual Weight 67.9 kg 69.8 kg
06/30/23 04:28
06/30/23 04:28
PT 14.8 Sec (11.4-14.6) H 06/28/23 12:11
INR 1.18 06/28/23 12:11
APTT 28.5 Sec (23.4-35.0) 06/28/23 12:11
Magnesium 2.5 mg/dl (1.6-2.3) H 06/30/23 04:28
Physical Exam
Constitutional: No acute distress and Comfortable
EENT: Moist mucous membranes
Cardiovascular: Rhythm & rate is regular, Pedal edema is absent, JVD pressure is normal and Systolic murmur present
Respiratory: Respiratory effort normal and Lungs clear to auscul.
GI: Soft and Distention absent
Neuro/Psych: AO x 3
Data Reviewed
-
Date of Service: June 30, 2023
EKG: Other (Tele: NSR)
Medical Tests (PFT, Pathology etc): Report Reviewed by me (echo per note)
Labs: Labs Reviewed by me
[2023-06-30] MEDS: FLEXBUMIN 100 IV (09:36)
[2023-06-30] MEDS: LASIX 40 MG IV (09:37)
[2023-06-30] MEDS: NSS 500 IV (10:16)
--- NOTE | 2023-06-30 11:33 | W.PN.INTV ---
Today's Communication / Plan
Recommendations
Up OOB as tolerated
Encourage incentive spirometer 10x per hour for at least 4 hours/day
Maintain SpO2 >90-94%
PT/OT
Pain control
Goal BG 140�180
Patient is now CVICU�telemetry status. Automatic Oven Operator/Pulmonary service will now sign off. Please reconsult if there are any additional questions/concerns, or if patient's respiratory status deteriorates.
Assessment
-
Assessment: 63-year-old female former tobacco smoker (5-pack-year history, quit approximately 30 years ago) with a PMHx of left-sided breast cancer s/p XRT/lumpectomy, IBS�D, GERD, history of mumps, hyperlipidemia and history of recurrent kidney
infections who p/w ellective mitral valve surgical repair. Patient known to Dr. Grant with last outpatient office visit on 04/28/2023. Patient has known lesion seen on echocardiography involving patient's mitral valve. Due to how of the mitral
valve mass was attached to her heart there was high risk related to a mitral valve replacement, hence mitral valve repair was recommended. On 06/28/2023, she underwent right minithoracotomy with radical mitral valve repair with tumor resection.
There were no immediate surgical complications and the patient was transferred to the CVICU postoperatively with intermediate manager/pulmonary services consulted for additional management/recommendations.
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
hyperlipidemia
Impression:
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
#Leukocytosis - likely reactive in setting of above
#Anemia (baseline Hb 12-12.5)
#Former tobacco use disorder with 5-pack-year history, quit approximately 30 years ago
Plan:
Patient successfully extubated and remains on room air breathing comfortably
Maintain SpO2 >90-94%
Encourage incentive spirometer
Up OOB as tolerated
PT/OT
Monitor hemoglobin
Monitor platelet count and coags
Transfuse blood product if needed to keep Hb>7, plt>50k
CT surgery managing chest tube
Replete K>4, Mg>2, PO4>3
Monitor blood sugar with goal BG 140-180mg/dL
She has now been weaned off the insulin gtt
Aspiration precautions
DVT prophylaxis
Early nutrition
Early mobilization
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
Patient is now CVICU�telemetry status. Automatic Oven Operator/Pulmonary service will now sign off. Thank you for allowing us to be involved in the care of this patient. Please reconsult if there are any additional questions/concerns, or if patient's
respiratory status deteriorates.
I personally reviewed the patient's vitals, labs, imaging, micro, current/former documentation and took this into account when formulating plan above. I reviewed this plan with the patient's CVICU nurse and discussed ventilatory management with the
respiratory therapist.
Total time spent today was 41 minutes for this encounter. Time includes reviewing laboratory test/imaging results, reviewing pertinent medical records, obtaining and reviewing medical history, performing an appropriate exam, ordering medications,
tests and procedures. Time also includes documentation of this encounter, coordinating patient care and communicating with other healthcare professionals. Total time does not include separately billed tests performed on this date of service.
Data:
CXR 06-28-2023: Linear opacity within the right mid to lower lung zone, most suggestive of subsegmental atelectasis. Otherwise clear lungs.
CXR 06-29-2023: Interval removal of central pulmonary artery catheter and endotracheal tube; No pneumothorax.
CXR 06-30-2023: Interval removal of right chest tube; There is probably a tiny right apical pneumothorax.
Subjective Dataa
Subjective Data
Date of Service:
Date of Service: June 30, 2023
Chief Complaint: Automatic Oven Operator Follow Up
Subjective:
Patient seen and evaluated late this morning. She is feeling well. Up out of bed and walking around. Daughter at bedside. I answered all the daughter and the patient's questions. Patient's current vitals are: Heart rate 71, BP 158, SpO2 100% on
room air. Patient is eager to go home. She denies headache, shortness of breath, abdominal pain, fevers chills. She has some tenderness at the incision site on the right side of her chest but it is not severe.
Review of Systems
General: Other (12 point ROS performed and is negative unless mentioned above.)
Objective Data
Data Reviewed
Vital Signs / I&O / Oxygen:
Vital Signs
Temp Pulse Resp BP Pulse Ox
98.6 F 69 16 101/64 100
06/30/23 08:11 06/30/23 09:00 06/30/23 08:11 06/30/23 08:32 06/30/23 08:11
Intake and Output
06/29/23 06/30/23 07/01/23
06:59 06:59 06:59
Intake Total 811.9 / 862.5 1704.5 / 1704.5 270 / 270
Output Total 1005 / 1030 625 / 625
Balance -193.1 / -167.5 1079.5 / 1079.5 270 / 270
SaO2 [CPAP/PSV] 99
SaO2 [SIMV] 99
SaO2 100
Nasal Cannula flow liters per 1
minute
Physical Exam
General: Comfortable
HEENT: Normocephalic and Anicteric
Cardiovascular: S1-S2 and Peripheral Edema (negative)
Respiratory: Clear, Wheeze (negative), Crackles (negative) and Non-Labored Respirations
GI: Soft, Non Distended, Non Tender and Normal Bowel Sounds
Neurology: AO x 3
Skin: Warm, Dry and Other (sutures seen on right chest wall adjacent to breast)
Labs/Micro/Reports
Lab Data
06/30/23 04:28
06/30/23 04:28
--- NOTE | 2023-06-30 11:46 | PTCARENOTE ---
VS obtained, stable. Patient assisted to bathroom, voided. Settled into chair, perusing menu. Daughter in room for visit.
--- NOTE | 2023-06-30 13:14 | W.[place]-PDMP ---
[place]-PD[place]
-
Checked the [place]- Prescription Drug Monitoring Program website, no red flags identified; safe to proceed with prescription.
--- NOTE | 2023-06-30 13:15 | W.DCSUMMARY ---
Discharge Summary
Discharge Data
Date of Admission: 06/28/23
Date of Discharge: 06/30/23
Total time spent discharging patient (in min): 33
-
Pending Results: No
Hospital Course
Primary care physician:
Dr. Minerva Nur
Outpatient powder shoveler:
Dr. Beaver
Inpatient consultants:
cbc, pigment processor
Procedures:
1. Radical mitral valve repair with tumor resection (detachment of the posterior leaflet, tumor resection, reattachment of the posterior leaflet, 26 mm band annuloplasty, free edge remodeling of the posterior leaflet, single pair of CV 4 Delano-Arnoldo
to A2)
Primary Diagnosis:
1. 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
Secondary Diagnoses:
1. Mild mitral valve insufficiency
2. Irritable bowel syndrome
3. History of breast cancer
4. Mumps
5. Lyme's disease
6. Hyperlipidemia
HPI: 63-year-old female who was incidentally found to have an intracardiac tumor on the undersurface of her mitral valve. He was found to be on the ventricular aspect of the posterior leaflet of the mitral valve intimately adherent to the chordal
structures and subvalvular apparatus as well as the leaflet. The appearance of the mass on imaging studies was consistent with a myxoma. Given the risk of strokes at her age, she was counseled about moving forward with mitral valve intervention.
She presented on 06/27 for an elective MV repair with Dr. Grant.
Hospital course:
Patient was electively admitted on 06/27 for a mitral valve repair with Dr. Grant. She returned from the OR to the CVICU on Levophed, Precedex, and insulin infusions. Patient was extubated by 1609 and the Precedex infusion was turned off. Patient's
vital signs and central numbers were stable so patient was delined up by 6 PM. On 06/28 postoperative day #1, patient's vital signs were stable. Chest tubes and Spring catheter were removed. Insulin drip was turned off. A murmur was heard on
physical exam and a follow-up echocardiogram was performed which showed mild TR and trace MR. On 06/29 postoperative day #2, patient was noted to be hypotensive overnight with systolic pressure in the 80s. Patient's metoprolol tartrate twice daily
was discontinued and patient was started on metoprolol succinate 12.5 mg daily. Patient was also dosed with 40 mg of oral Lasix with adequate response. Patient was deemed stable for discharge and will be sent home for with a prescription for Lasix
for 7 days along with repeat blood work.
Home medication changes:
See below
Discharge Plan
-
Patient Disposition: Home (Routine Discharge)
Discharge Diagnosis/Procedures: MR/mitral valve repair
Condition: Fair
Diet: Low Fat and Low Sodium
Activity: No strenuous activity
Driving Restrictions: No driving for 2 weeks
Bathing Restrictions: OK to Shower
Blood Work: BMP and magnesium on 07/01 and 07/06
Other Services: Cardiac Rehab
Specialty Instructions: Weigh Daily- Call MD for wt gain/loss 3 lbs overnight/5 lbs in 1 week
Activity Restrictions/Additional Instructions:
ACTIVITY:
-No strenuous activity: no heavy lifting, pushing, pulling anything over 15 pounds for one month
-continue to use stairs as tolerated
DRIVING RESTRICTIONS:
-No driving for one month or until approved by your surgeon
WOUND CARE:
-Shower daily. Use soap & water.
-No lotions, creams or powders on incision area.
DIET:
-continue a low fat/low cholesterol diet.
-IF you are diabetic, continue carb controlled diet.
CARDIAC REHAB:
-Please make appointment to start in 5-6 weeks with your local hospital program. (See Cardiac Rehabilitation Discharge Booklet).
SPECIALTY INSTRUCTIONS:
-Weigh yourself daily. Call your physician for any weight gain/loss of 3 lbs overnight or 5 lbs in one week.
-REPORT any clicking noise or uneven appearance of your sternum to your surgeon immediately.
-If you smoke, you are instructed to quit. The [place] smoking hotline phone number is [phone]
Referrals:
CT Transitional Care Nurse [Outside] - in one to two days
(
The Cardiothoracic Transitional Care Nurse will call you to set up a visit in 1-2 days.)
[facility] [Outside] - 08/02/23 10:00 am
(Cardiac Rehab Orientation appointment and� First Exercise appointment is on 08/02/23 at 10 AM.
The Cardiac Rehab gym is located on the first floor of the [facility].)
Zenia Rae NP [Specified Professional Personl] - 08/16/23 2:00 pm
Gina Nur MD [Family Provider] - in four to six weeks (Please make an appointment in four to six weeks.)
Les Grant MD [Active] - 07/28/23 1:30 pm
Additional Discharge Medication Instructions: Discontinue Eliquis 5mg BID
Prescriptions:
New
cyclobenzaprine 10 mg Tablet
5 mg PO HS PRN (Reason: muscle spasm) Qty: 30 0RF
acetaminophen 325 mg Tablet
650 mg PO Q6H PRN (Reason: mild to moderate pain) Qty: 0 0RF
metoprolol succinate 25 mg Tablet Extended Release 24 Hr
12.5 mg PO DAILY Qty: 30 1RF
aspirin 81 mg Tablet,Chewable
81 mg PO DAILY Qty: 0 0RF
gabapentin 100 mg Capsule
100 mg PO TID Qty: 30 0RF
oxycodone 5 mg Tablet
2.5 mg PO Q6HPRN PRN (Reason: Severe pain) Qty: 20 0RF
furosemide [Lasix] 40 mg tablet
40 mg PO DAILY Qty: 7 0RF
potassium chloride 20 mEq tablet extended release
20 meq PO DAILY Qty: 7 0RF
Rx Instructions:
only take while on lasix
Continued
rosuvastatin 5 mg tablet
5 mg PO DAILY
famotidine [Pepcid] 20 mg Tablet
20 mg PO DAILY
Azo Bladder Control 300 mg Capsule
300 cap PO DAILY PRN (Reason: INTERSTITIAL CYSTITIS FLAIR)
Discontinued
Eliquis 5 mg tablet
5 mg PO BID
Discharge Orders:
Discharge Patient (As Directed); Ordered 06/30/23
Ordered By: Manasa Andrade
Care Plan Goals
Care Plan Goals:
Problem: Readiness for enhanced knowledge related to diagnosis and treatment plan
Goal: Understand your diagnosis and treatment plan needs, including medications if applicable.
Instructions: Know your diagnosis, underlying causes and treatment plan options, including medications if applicable. Consult with your health care team to learn about your diagnosis and treatment plan, including medications if applicable.
Discharge Date and Time
Print Language: GEORGIAN
--- NOTE | 2023-06-30 15:40 | PTCARENOTE ---
Epicardial V-wire cut by this RN and DEWATERING FILTERING SUPERVISOR Raymond assist. Patient tolerated well.
--- NOTE | 2023-06-30 16:00 | PTCARENOTE ---
VS obtained, stable. Patient set up to shower, for discharge.
--- NOTE | 2023-06-30 17:06 | PTCARENOTE ---
Patient set up to shower, completed independently. Discharge instructions thoroughly reviewed w/patient and daughter, all questions answered. PIV removed. Patient and all belongings transported to waiting vehicle for d/c home to private residence.
== END 2023-06-30 17:05 | disposition home or self-care (01) | DRG 220 ==
LOC: CVICU 05:22
PROVIDERS: Physician Assistant Medical; ADMITTING PHYSICIAN Thoracic Surgery (Cardiothoracic Vascular Surgery); CONSULT PHYSICIAN Internal Medicine Critical Care Medicine; FAMILY PHYSICIAN Family Medicine
PROC: 02UG0JZ Supplement Mitral Valve with Synthetic Substitute, Open Approach (ICD-10-PCS; 2023-06-28)
PROC: 5A1221Z Performance of Cardiac Output, Continuous (ICD-10-PCS; 2023-06-28)
PROC: B24BZZ4 Ultrasonography of Heart with Aorta, Transesophageal (ICD-10-PCS; 2023-06-28)
PROC: 02BG0ZZ Excision of Mitral Valve, Open Approach (ICD-10-PCS; 2023-06-28)
DX: D15.1 Benign neoplasm of heart (principal); A69.20 Lyme disease, unspecified; D62 Acute posthemorrhagic anemia; J98.11 Atelectasis; I34.0 Nonrheumatic mitral (valve) insufficiency; E78.5 Hyperlipidemia, unspecified; K58.9 Irritable bowel syndrome, unspecified; Z86.19 Personal history of other infectious and parasitic diseases; Z85.3 Personal history of malignant neoplasm of breast; Z87.891 Personal history of nicotine dependence
CPT/HCPCS: 88307; 93308; 36415; 71045; 80048; 80053; 81003; 82248; 82330; 82565; 82805; 82947; 82962; 83036; 83735; 84132; 84302; 84520; 85014; 85018; 85025; 85027; 85049; 85610; 85730; 86850; 86900; 86901; 86920; 87070; 93005; 93312; 93320; 93321; 93325; 93880; 94002; J2916; P9045; P9047

== ENCOUNTER → 2023-07-02 08:32 | Outpatient (REF) | payer MEDICARE, SELFPAY ==
[2023-07-02 10:46] LABS: Blood Urea Nitrogen 17 mg/dl (7-17); Calcium 9.7 mg/dl (8.4-10.2); Carbon Dioxide 29 mmol/L (22-30); Chloride 103 mmol/L (98-107); Glucose 105 mg/dl (70-99); Magnesium 2.2 mg/dl (1.6-2.3); Potassium 4.6 mmol/L (3.5-5.1); Sodium 138 mmol/L (135-145); eGFR > 60.00
== END ==
LOC: REG 08:32
PROVIDERS: ATTENDING PHYSICIAN Thoracic Surgery (Cardiothoracic Vascular Surgery); FAMILY PHYSICIAN Family Medicine
DX: Z98.890 Other specified postprocedural states (principal)
CPT/HCPCS: 36415; 80048; 83735

== ENCOUNTER → 2023-07-07 07:54 | Outpatient (REF) | payer MEDICARE, SELFPAY ==
[2023-07-07 09:33] LABS: Blood Urea Nitrogen 19 mg/dl (7-17); Calcium 10.5 mg/dl (8.4-10.2); Carbon Dioxide 27 mmol/L (22-30); Chloride 100 mmol/L (98-107); Glucose 106 mg/dl (70-99); Magnesium 2.3 mg/dl (1.6-2.3); Sodium 138 mmol/L (135-145); eGFR 50.23
[2023-07-07 09:42] LABS: Potassium 4.7 mmol/L (3.5-5.1)
== END ==
LOC: REG 07:54
PROVIDERS: ATTENDING PHYSICIAN Thoracic Surgery (Cardiothoracic Vascular Surgery); FAMILY PHYSICIAN Family Medicine
DX: Z98.890 Other specified postprocedural states (principal)
CPT/HCPCS: 36415; 80048; 83735

== ENCOUNTER 2023-08-13 16:59 | Outpatient (RCR) | payer MEDICARE, SELFPAY | END 2023-08-13 23:59 | disposition home or self-care (01) | LOC: CRHB 16:59 | PROVIDERS: ATTENDING PHYSICIAN Internal Medicine | DX: Z95.4 Presence of other heart-valve replacement (principal) | CPT/HCPCS: G0422; G0423 ==

== ENCOUNTER → 2023-09-09 16:02 | Outpatient (REF) | payer MEDICARE, SELFPAY | LOC: HWRCS 16:02 | PROVIDERS: ATTENDING PHYSICIAN Internal Medicine; FAMILY PHYSICIAN Family Medicine | DX: Z98.890 Other specified postprocedural states (principal) | CPT/HCPCS: 93306 ==

== ENCOUNTER → 2023-10-27 09:02 | Outpatient (REF) | payer MEDICARE, SELFPAY | LOC: RAD 09:02 | PROVIDERS: ATTENDING PHYSICIAN Family Medicine | DX: Z78.0 Asymptomatic menopausal state (principal) | CPT/HCPCS: 77080 ==

== ENCOUNTER → 2024-01-05 07:05 | Outpatient (REF) | payer MEDICARE, SELFPAY | LOC: RCS 07:05 | PROVIDERS: ATTENDING PHYSICIAN Thoracic Surgery (Cardiothoracic Vascular Surgery); FAMILY PHYSICIAN Family Medicine; REFERRING PHYSICIAN Internal Medicine | DX: Z98.890 Other specified postprocedural states (principal) | CPT/HCPCS: 93306 ==

== ENCOUNTER → 2024-04-17 07:13 | Outpatient (REF) | payer MEDICARE, SELFPAY | LOC: WDC 07:13 | PROVIDERS: ATTENDING PHYSICIAN Family Medicine | DX: Z85.3 Personal history of malignant neoplasm of breast (principal); Z12.31 Encounter for screening mammogram for malignant neoplasm of breast | CPT/HCPCS: 77063; 77067 ==

== ENCOUNTER → 2025-01-08 09:53 | Outpatient (REF) | payer MEDICARE, SELFPAY | LOC: HWRCS 09:53 | PROVIDERS: ATTENDING PHYSICIAN Thoracic Surgery (Cardiothoracic Vascular Surgery); FAMILY PHYSICIAN Family Medicine | DX: Z98.890 Other specified postprocedural states (principal) | CPT/HCPCS: 93306 ==

== ENCOUNTER 2025-01-29 14:25 | Emergency (ER) | payer MEDICARE, SELFPAY ==
[2025-01-29] VITALS (7 sets, daily range): BP systolic 91–122; BP diastolic 60–79; BMI 26.5
--- NOTE | 2025-01-29 16:17 | ED.GENMED ---
History of Present Illness
General
Chief Complaint: Chest Pain
Time Seen by Provider: 01/29/25 15:51
History of Present Illness
History of Present Illness:
see MDM
Past History
Past History
ED Past Medical History: None
ED Past Surgical History: Other (left lumpectomy cervical polyp)
Social History
Tobacco: Non-smoker
Alcohol: None
Drug: None
Personal:
Living: with family
Phy Exam
Physical Exam
Physical Exam:
see mdm
Scores
Heart Score for Chest Pain Patients
STEMI patient?: No
History: Slightly or Non-Suspicious
ECG: Nonspecific Repolarization
Age: >45 - <65 years
Risk Factors: 1 or 2 Risk Factors
Troponin: </= Normal Limit
Heart Score for Chest Pain Patients: 3
Heart Score Risk: 2.5% MACE over next 6 weeks
Course
Orders/Labs/Results
Orders:
Orders
01/29/25 14:26
Electrocardiogram (*1) Urgent
Reason for Study: Palpitations
EKG- Treatment ONCE
01/29/25 16:11
0.9% Sodium Chloride 500 ml [Nss] 500 ml IV BOLUS
01/29/25 16:35
COVID-19 Antigen Urgent
Source: Nasal Swab
Complete Blood Count/With Diff Urgent
Comprehensive Metabolic Panel Urgent
D-Dimer Urgent
Lipase Urgent
Comment: ADD ON
Magnesium Urgent
Phos [Phosphorus] Urgent
Troponin I Urgent
01/29/25 17:03
Add On- LAB Urgent
Tests Added?: lipase
01/29/25 17:36
CT Pe/abd/pel W Urgent
Reason For Exam: palpitaitons, elevated D DIMER
01/29/25 17:42
Influenza A+B Rapid Molecular Urgent
SANJUANA Source: Nasal Swab
Specimen Description:
Abnormal Lab Results
01/29/25
16:35
MCHC 31.9 L g/dL
(33.0-37.0)
Monocytes % 9.4 H %
(1.7-9.3)
D-Dimer 2.47 H ug/mlFEU
(0.00-0.50)
Carbon Dioxide 31 H mmol/L
(22-30)
Creatinine 1.2 H mg/dL
(0.6-1.0)
Glucose 110 H mg/dl
(70-99)
Calcium 10.3 H mg/dl
(8.4-10.2)
AST 58 H U/L
(14-36)
ALT 92 H U/L
(0-35)
01/29/25 16:35
01/29/25 16:35
Vital Signs
Initial and Last Documented VS:
Initial Vital Signs
Temp Resp BP Pulse Ox
36.9 C 16 122/68 98
01/29/25 14:31 01/29/25 14:31 01/29/25 14:31 01/29/25 14:31
Last Documented Vital Signs
Temp Pulse Resp BP Pulse Ox
36.9 C 75 12 104/79 96
01/29/25 14:31 01/29/25 20:15 01/29/25 20:15 01/29/25 20:00 01/29/25 20:15
MDM/Problems Addressed
Differential Diagnosis Includes:
see MDM
MDM/Problems Addressed:
Note:
CHIEF COMPLAINT(S)
Palpitations and elevated heart rate.
HISTORY OF PRESENT ILLNESS
The patient is a 64-year-old female presenting with palpitations and a heart rate variability with HRs in 70s then 130s according to her apple watch. . She attempted a home electrocardiogram, but it was inconclusive. The patient contacted her
doctor, who advised her to present to the emergency department for further evaluation. She reports her condition started without warning and she previously had no history of palpitations. The patient describes feeling unwell, marielos to a bad reaction
to a vaccine, feeling 'punky' and not like herself. She felt clammy to the touch. Despite the elevated heart rate, she denies chest pain, shortness of breath, or exertional symptoms such as dyspnea upon climbing stairs.
The patient underwent open-heart surgery a year and a half ago to remove an atrial myxoma from the mitral valve performed by Dr. garcia. Post-surgery, she was placed on a beta-rachel, which was discontinued after three months when her heart rate
returned to about 60 beats per minute, her normal baseline. She reports normal blood pressure readings around 90/60 mmHg post-procedure
pt received call from dr. izaguirre's office after she left message; they instructed her to picking crew supervisor a 48 hour monitor to wear.
pt did travel to [place] 2 mo ago
no leg painsweling
PAST MEDICAL AND SURIGICAL HISTORY
The patient has a history of open-heart surgery for the removal of an atrial myxoma on the mitral valve.
ADDITIONAL HISTORY OBTAINED FROM SOURCES OTHER THAN THE PATIENT
The spouse, who accompanied the patient, confirmed she felt clammy and 'not herself'.
CHRONIC MEDICAL CONDITIONS SIGNIFICANTLY AFFECTING CARE
History of mitral valve atrial myxoma.
ALLERGIES
The patient reports an allergy to Lodine, and possibly a reaction to codeine.
REVIEW OF SYSTEMS
- Cardiovascular: Palpitations, no chest pain, no exertional dyspnea.
- Gastrointestinal: No nausea, vomiting, or diarrhea reported.
- General: Feeling unwell, clammy, and fatigued.
PHYSICAL EXAM
- General: The patient appears pale and fatigued.
- Cardiovascular: Irregular heartbeat detected upon examination with frequent premature atrial contractions.
- Skin: Clammy sensation to touch, paleness observed.
Nursing notes reviewed and vital signs reviewed.
PROBLEM LIST
- Acute: Palpitations, possible dehydration, fatigue.
- Chronic: Status post-mitral valve atrial myxoma resection.
PLAN
1. Blood tests including electrolytes, complete blood count, and cardiac enzymes.
2. Echocardiogram to assess cardiac structure and function.
3. Arrange for a historical archeologist to capture heart rhythm over time.
4. Administer intravenous fluids for potential dehydration and electrolyte imbalance.
5. D-dimer test to rule out pulmonary embolism given recent travel history.
6. Follow-up appointment with architect in training is scheduled.
DIFFERENTIAL DIAGNOSIS
The Differential Diagnosis includes, in no particular order and is not limited to:
1. Atrial Fibrillation
2. Atrial Flutter
3. Supraventricular Tachycardia
4. Premature Atrial Contractions
5. Electrolyte Imbalance
6. Anemia
7. Hyperthyroidism
8. Dehydration
9. Anxiety-related palpitations
10. Drug-induced tachycardia
CARE-UPDATE
01/29/25 - 20:[address] scan showed no blood clots in the lungs, and the aorta is normal with no dilation or dissection. There are some mild findings, including a prominent right atrium and a right ventricular prominence, possibly indicating tricuspid valve
insufficiency, but recent echocardiogram results seem to discount this as a concern. There is a granuloma in the left lower lung, and mild sigmoid diverticulitis was noted without current inflammation. Liver markers are elevated, likely indicating a
viral syndrome. as the cause for her fatigue and not feeling well
i spoke with dr. higginbotham regarding the patient's ct report and ekg
she felt pt could be discahrged home
pt is asymptoamtic with PACs, no lightheadedness, no syncope
A Holter monitor has been ordered for further investigation, and light exercise is advised until results are available. Monitor symptoms closely, and return if lightheadedness, dizziness, or fainting occurs. The patient should call to schedule the
Holter monitor for further evaluation.
*Pulse Oximetry
SaO2: 98
Oxygen Mode of Delivery: Room air
Patient hypoxic: no (96)
*Critical Care Note
Total Time (30-74mins, 75-104mins- exclusive of procedures): Not Applicable
ED Attending Note
-
Portions of this chart may have been created with voice recognition software.� Occasional wrong word or��sound alike� substitutions may have occurred due to the inherent limitations of voice recognition software.
Discharge Plan
Departure
Patient Disposition: Home (Routine Discharge)
Date of Disposition: 01/29/25
Time of Disposition: 20:14
Patient with high blood pressure during this ER visit?: No
Condition: Fair
Covid-19: Not Applicable
Discharge Problem:
PAC (premature atrial contraction)
Instructions: Overview of heart arrhythmias, Chest Pain CBC Follow Up
Prescriptions:
No Action
rosuvastatin 5 mg tablet
5 mg PO DAILY
famotidine [Pepcid] 20 mg Tablet
20 mg PO DAILY
Azo Bladder Control 300 mg Capsule
300 cap PO DAILY PRN (Reason: INTERSTITIAL CYSTITIS FLAIR)
cyclobenzaprine 10 mg Tablet
5 mg PO HS PRN (Reason: muscle spasm) Qty: 30 0RF
acetaminophen 325 mg Tablet
650 mg PO Q6H PRN (Reason: mild to moderate pain) Qty: 0 0RF
metoprolol succinate 25 mg Tablet Extended Release 24 Hr
12.5 mg PO DAILY Qty: 30 1RF
aspirin 81 mg Tablet,Chewable
81 mg PO DAILY Qty: 0 0RF
gabapentin 100 mg Capsule
100 mg PO TID Qty: 30 0RF
oxycodone 5 mg Tablet
2.5 mg PO Q6HPRN PRN (Reason: Severe pain) Qty: 20 0RF
furosemide [Lasix] 40 mg tablet
40 mg PO DAILY Qty: 7 0RF
potassium chloride 20 mEq tablet extended release
20 meq PO DAILY Qty: 7 0RF
Rx Instructions:
only take while on lasix
Referrals:
Gina Nur MD [Family Provider, [facility]]
Activity Restrictions/Additional Instructions:
Your rhythm is sinus with some frequent PACs called you did not have any concerning abnormalities on your CAT scan, there was no signs of blood clot or heart attack. Your liver enzymes are mildly elevated and need to be monitored. You have mild
tricuspid regurgitation as seen on your echocardiogram previously but this is not any different. You should call your architect in training and schedule follow-up appointment. They also want to schedule you for a Holter monitor. Have a low threshold for
returning to the emergency department for passing out, lightheadedness, severe shortness of breath, low heart rate etc. Otherwise follow-up with your architect in training
Interventions
Interventions:
*Risk Screen - Suicide Last Done: 01/29/25 14:31
*General Assessment Last Done: 01/29/25 14:31
*Neglect/Abuse Screening Last Done: 01/29/25 15:36
*ED- Fall Risk Assessment Last Done: 01/29/25 15:36
*ED COVID-19 Vaccine History Last Done: 01/29/25 14:31
*ED Influenza Vaccine History Last Done: 01/29/25 14:31
*Nursing Disposition Last Done: 01/29/25 20:20
ED- Cardiac Assessment Last Done: 01/29/25 15:36
Discharge Date and Time
Discharge Date/Time: 01/29/25 20:20
Print Language: BENINESE
[2025-01-29] MEDS: NSS 500 IV (16:35)
[2025-01-29 16:43] LABS: Hematocrit 38.5 % (37.0-47.0); Hemoglobin 12.3 g/dL (12.0-16.0); Mean Corp Hgb Conc. 31.9 g/dL (33.0-37.0); Mean Corpuscular Volume 90.4 fL (81.0-99.0); Nucleated Red Blood Cells % 0 %; Platelet Count 238 10^3/uL (130-400); Red Cell Dist. Width 13.9 % (11.5-14.5)
[2025-01-29 17:01] LABS: ALT (SGPT) 92 U/L (0-35); AST (SGOT) 58 U/L (14-36); Albumin 4.5 g/dl (3.5-5.0); Alkaline Phosphatase 100 U/L (38-126); Blood Urea Nitrogen 15 mg/dl (7-17); Calcium 10.3 mg/dl (8.4-10.2); Carbon Dioxide 31 mmol/L (22-30); Chloride 104 mmol/L (98-107); Estimated Creatinine Clearance 40 ml/min; Glucose 110 mg/dl (70-99); Magnesium 2.1 mg/dl (1.6-2.3); Potassium 4.2 mmol/L (3.5-5.1); Sodium 139 mmol/L (135-145); Total Protein 7.3 g/dl (6.3-8.2); eGFR 49.92
[2025-01-29 17:07] LABS: D-Dimer 2.47 ug/mlFEU (0.00-0.50)
[2025-01-29 17:11] LABS: Troponin I < 0.012 ng/ml
[2025-01-29 17:16] LABS: COVID-19 Antigen Negative (Negative)
[2025-01-29 17:50] LABS: Lipase 113 U/L (23-300)
== END 2025-01-29 20:20 | disposition home or self-care (01) ==
LOC: EMR 14:25
PROVIDERS: Physician Assistant; EMERGENCY PHYSICIAN Emergency Medicine; FAMILY PHYSICIAN Family Medicine
DX: I49.1 Atrial premature depolarization (principal); Z95.2 Presence of prosthetic heart valve
CPT/HCPCS: 99284; 71275; 74177; 80053; 83690; 83735; 84100; 84484; 85025; 85379; 87502; 87811; 93005; Q9967

== ENCOUNTER → 2025-01-31 08:15 | Outpatient (REF) | payer MEDICARE, SELFPAY | LOC: RCS 08:15 | PROVIDERS: ATTENDING PHYSICIAN Internal Medicine; FAMILY PHYSICIAN Family Medicine | DX: R00.1 Bradycardia, unspecified (principal); R42 Dizziness and giddiness | CPT/HCPCS: 93225; 93226 ==

== ENCOUNTER → 2025-02-05 06:49 | Outpatient (REF) | payer MEDICARE, SELFPAY | LOC: MRI 06:49 | PROVIDERS: ATTENDING PHYSICIAN Physical Medicine & Rehabilitation; FAMILY PHYSICIAN Family Medicine | DX: M54.16 Radiculopathy, lumbar region (principal); M25.551 Pain in right hip | CPT/HCPCS: 72148; 73721 ==

== ENCOUNTER → 2025-03-06 10:09 | Outpatient (REF) | payer MEDICARE, SELFPAY | LOC: RCS 10:09 | PROVIDERS: ATTENDING PHYSICIAN Internal Medicine; FAMILY PHYSICIAN Family Medicine | DX: I49.1 Atrial premature depolarization (principal); I47.10 Supraventricular tachycardia, unspecified | CPT/HCPCS: 93225; 93226 ==